=== PATIENT | male | born 1980 | race Caucasian/White ===

== ENCOUNTER → 2017-09-06 07:59 | Outpatient (CLI) | payer OTHER, SELFPAY ==
[2017-09-06 08:19] LABS: Hemoglobin 15.4 g/dL (13.5-17.5); Mean Corpuscular HGB Conc 34.2 % (30-36); Mean Corpuscular Hemoglobin 28.8 PG (26-34); Mean Corpuscular Volume 84.1 fL (80-100); Platelet Count 273 X10^3/uL (150-400); Red Blood Cell Count 5.35 X10^6/uL (4.5-5.9); Red Cell Distribution Width 13.8 % (11.6-14.8)
[2017-09-06 08:29] LABS: Alanine Aminotransferase 50 IU/L (21-72); Albumin 4.3 g/dL (3.5-5.0); Albumin Globulin Ratio 1.7 (1.0-2.8); Alkaline Phosphatase 45 U/L (38-126); Aspartate Aminotransferase 23 IU/L (17-59); BUN Creatinine Ratio 13.6 (6-22); Bilirubin Total 0.5 mg/dL (0.2-1.3); Blood Urea Nitrogen 15 mg/dL (9-20); Calcium 9.3 mg/dL (8.4-10.2); Carbon Dioxide 29 mmol/L (22-32); Chloride 103 mmol/L (98-107); Cholesterol 163 mg/dL (140-199); Estimated Glomerular Filt Rate > 60.0 mL/min (>60); Globulin 2.6 g/dL (1.7-4.1); Glucose 96 mg/dL (70-100); HDL Cholesterol 40 mg/dL (40-60); HEMOLYSIS < 15 (0-50); LDL Cholesterol Calculated 100 mg/dL (<100); Potassium 4.3 mmol/L (3.4-5.1); Sodium 141 mmol/L (137-145); Total Protein 6.9 g/dL (6.3-8.2); Triglycerides 117 mg/dL (35-150)
== END ==
PROVIDERS: Visit Provider Registered Nurse
DX: R94.4 Abnormal results of kidney function studies (principal); E78.1 Pure hyperglyceridemia
CPT/HCPCS: 36415; 80053; 80061; 85025; 85027

== ENCOUNTER 2019-03-18 16:00 | Outpatient (RCR) | payer OTHER, SELFPAY ==
--- NOTE | 2019-02-16 18:19 | PT.OIE ---
Current Diagnoses Strain of muscle, fascia and tendon at neck level, initial encounter (02/16/19) Strain of muscle and tendon of back wall of thorax, initial encounter (02/16/19) Visit Care Team Role Provider Type CHARLENE Mccoy Primary Care Provider Non-Staff Specialty: Naturopathy Address: [address], [address] Email: Landen Anderson [place] Attending Provider Non-Staff Specialty: Chiropractic Address: [address] [place] [address], [id number] Email: Physical Therapy Initial Evaluation PT-OP-A Visit Information Start: 02/16/19 17:34 Freq: Status: Active Protocol: Document 02/16/19 17:35 HH (Rec: 02/16/19 19:20 [id number]) Out-Patient Physical Therapy Visit Information Visit Information Visit Type Initial Evaluation Visit Note SPT Bandar led IE. Visit Start Time 17:35 Visit Stop Time 18:19 Total Visit Minutes 44 Visit Number 1 Number of ORDNANCE KEEPER Visits 0 Evaluation Information Evaluation Date 02/17/19 PT-OP-B Current Condition Start: 02/16/19 17:34 Freq: Status: Active Protocol: Document 02/16/19 17:35 HH (Rec: 02/16/19 19:20 [id number]) Current Condition History of Current Condition Onset Date >10years ago Current Complaints Chronic neck pain and upper back pain, constant headache History of Current Condition Pt presents to clinic with primary c/o chronic neck pain and upper back pain, along with headache. He notes that his neck and upper back pain is not constant but tends to get aggravated after sleeping on it wrong, which then leads to his headache. Pt reports his pain started 10 years ago after he got as he stopped working out. He also notes his neck pain has been getting worse and feels like it is changing so it feels less like my neck is out of alignment and more like pressure between the joints in my neck. Pt states that he also has some tingling up his spine towards his neck when his pain is aggravated. Pt tends to feel better if he stretches his neck or places a towel placed underneath his neck in supine to relax. He has had chiropractic tx consistently over last 10 years but progress is not signficant so far. Looking to his R side, prolonged sitting and working in front of the computer tend to increase his neck pain. Pt also stated he can only sleep up to 4 hours a night over the past 10 years and constantly feels fatigued. 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 Prior Treatments and Tests 10 year hx of chiropractics Treatment Goals Patient/Caregiver Goals 1. Reduce frequency of headaches 2. Work through day without pain 3. Sleep more at night without pain PT-OP-C Subjective Start: 02/16/19 17:34 Freq: Status: Active Protocol: Document 02/16/19 17:35 HH (Rec: 02/16/19 19:20 [id number]) OP-PT Subjective Patient Comments Patient Comments My neck is flared up right now and I have had pain with a headache for the past 2 days. My headache feels like the top of my head has a lot of pressure. Patient Questionnaires Neck Disability Index NDI Score 24/50 Neck Disability Index Impairment 40 to 59% Impaired (Score 20- 29) Quick Dash- Upper Extremity Quick Dash UE Score 54% Quick Dash UE Impairment 40 to 59% Impaired (Score 40- 59) OP-PT Pain Assessment Location Head Intensity 8 Scale Used Numeric (1 - 10) Description Pressure,Sharp Frequency Frequent Variations/Patterns Headache comes on after neck pain starts Pain Alleviating Factors Lying Supine,Position, Distraction Neck/upper back Pain Location Details Central neck/upper back Intensity 7 Scale Used Numeric (1 - 10) Description Aching,Sharp Frequency Frequent Other Pain Aggravating Factors sleeping wrong Pain Alleviating Factors Lying Supine,Position, Distraction PT-OP-E Functional Tests Start: 02/16/19 17:34 Freq: Status: Active Protocol: Document 02/16/19 17:35 HH (Rec: 02/16/19 19:20 [id number]) Functional Tests Boomey's Scratch Test Action 2- Left 145 flexion, sidebend compensation Action 2- Right 155 flexion Action 3- Left T4 Action 3- Right T10 (reports ant muscles limiting) PT-OP-F Manual Assessment Start: 02/16/19 17:34 Freq: Status: Active Protocol: Document 02/16/19 17:35 (Rec: 02/16/19 19:20 [id number]) Manual Assessments Soft Tissue Assessment Soft Tissue Mobility Assessment Suboccipital, cervical paraspinal hypertonicity bilaterally Joint Mobility Assessment Joint Mobility Assessment Noticeable OA hypomobility bilaterally (firm end feel, 25 % motion) AA WNL PT-OP-J Posture/Palpation/Skin Start: 02/16/19 17:34 Freq: Status: Active Protocol: Document 02/16/19 17:35 HH (Rec: 02/16/19 19:20 [id number]) Posture Evaluation Position Sitting Evaluation View Lateral Head/C-Spine Posture Forward Head T-Spine Posture Increased Kyphosis Shoulder Posture (L) Rounded,(R) Rounded,(R) Elevated PT-OP-K Range of Motion Start: 02/16/19 17:34 Freq: Status: Active Protocol: Document 02/16/19 17:35 (Rec: 02/16/19 19:20 [id number]) Cervical Spine Range of Motion Cervical Spine Active Degrees Testing Position Sitting Flexion 40 Extension 45 Rotation Left 60 Rotation Right 60 Comments resting CV angle =47 verbal ==> 55 tactile ==> 60 neck pain at during active rotation/ PROM at end range bilaterally. PT-OP-L Special Tests Start: 02/16/19 17:34 Freq: Status: Active Protocol: Document 02/16/19 17:35 HH (Rec: 02/16/19 19:20 [id number]) Special Tests Cervical Spine Special Tests Traction Test Results +ve Comments relief with distraction Passive Neck Flexion Test Results +ve Comments pain reproduction Spurling's Test Test Results +ve Comments pain B with compression cervical compression Test Results +ve cervical closed pack Test Results +ve Comments pain at end range ext + rotation Other Special Tests Special Tests Lumbar lock 45 B joint mobility deficit Sensation to light touch intact except for L pinky d/t previous injury which severed nerve in hand PT-OP-M Strength Start: 02/16/19 17:34 Freq: Status: Active Protocol: Document 02/16/19 17:35 HH (Rec: 02/16/19 19:20 [id number]) Shoulder Strength Shoulder Manual Muscle Testing Right Abduction (C5) 5 Normal Left Abduction (C5) 5 Normal Elbow/Forearm Strength Elbow and Forearm Manual Muscle Testing Right Flexion (C6) 5 Normal Extension (C7) 4 Good Left Flexion (C6) 5 Normal Extension (C7) 4 Good Wrist Strength Wrist Manual Muscle Testing Right Flexion (C7) 4 Good Extension (C6) 5 Normal Left Flexion (C7) 5 Normal PT-OP-Q Treatments Start: 02/16/19 17:34 Freq: Status: Active Protocol: Document 02/16/19 17:35 (Rec: 02/16/19 19:20 [id number]) Therapeutic Exercises Sitting Exercises chin tuck Sitting Exercise Name nose away from index finger Reps/Minutes 10 secs hold x5 Comments as HEP Manual Therapy Treatment Manual Traction cervical distraction Details with passive rotation Body Position Supine Reps/Duration 10 secs holdx 5 Comments with deep breathing ex Self-Care/Home Management Treatment Education Other Education Disc benefits of inc'd sleep for healing process and recovery. Educated pt on taking movement breaks throughout work day to improve neck pain. PT-OP-T Assessment and Plan Start: 02/16/19 17:34 Freq: Status: Active Protocol: Document 02/16/19 17:35 (Rec: 02/16/19 19:20 [id number]) Physical Therapy Assessment Rehab Potential Rehabilitation Potential Good Evaluation Complexity Number of Personal Factors/Comorbidities 1-2 Number of Body Systems Impaired 1-2 Clinical Presentation at Evaluation Stable Impairments Impairments Functional Activities, Functional Mobility,Pain, Posture,ROM,Strength Goals Self care Impairment Pt does not have HEP for self care Short Term Goal (STG) Pt will demonstrate safety and independence with short-term HEP STG Duration 4 weeks [facility] Goal (LTG) Pt will demonstrate safety and independence with maintenance HEP for long-term self management LTG Duration 8 weeks NDI Impairment Pt scored 24/50 (48% limited) on NDI Short Term Goal (STG) Pt will score <17/50 on NDI to reflect improved participation in functional activities STG Duration 4 weeks Restaurant Server Goal (LTG) Pt will score <10/50 on NDI to reflect improved participation in functional activities LTG Duration 8 weeks Neck pain Impairment Pt reports 7/10 neck pain, 8/ 10 headache Short Term Goal (STG) Pt will report no more than 5/ 10 pain in neck or head with daily activities STG Duration 4 weeks [facility] Goal (LTG) Pt will report no more than 3/ 10 pain in neck or head with daily activities LTG Duration 8 weeks Sleep Impairment Pt has limited sleep and reports neck pain/headache wakes him up Short Term Goal (STG) Pt will sleep >4 hours without interruption d/t neck pain to improve fatigue and headaches STG Duration 4 weeks Restaurant Server Goal (LTG) Pt will sleep >5 hours without interruption d/t neck pain to improve fatigue and headaches LTG Duration 8 weeks Assessment Summary Assessment Pt is mod complexity presenting with primary complaints of neck pain and headaches frequently over the last 10 years. Pt presents with flat affect and notes that he gets minimal sleep at night. Pt reports sx reproduction with cervical active and passive ROM, closed pack position, and compression. Pt has mild C7 conduction deficits B. Pt also presents with marked OA hypomobility B and suboccipital/cervical paraspinal hypertonicity. Pt notes immediate and lasting relief with cervical distraction. Pt will benefit from skilled therapy to address cervical hypomobility, aberrant movement patterns and posture, and improve general health. Physical Therapy Plan Frequency and Duration Frequency of Treatment 2x/Week Duration of Treatment 8 weeks Plan of Care Start Date 02/16/19 Plan of Care End Date 04/13/19 Therapeutic Interventions Therapeutic Interventions Balance Training,Home Exercise Program,Joint Mobilizations, Manual Therapy,Neuromuscular Re-education,Patient/Caregiver Education,Self-Care/Home Management,Sensory Integration ,Soft Tissue Mobilization, Taping,Therapeutic Activities, Therapeutic Exercises, Vestibular Rehabilitation Modalities Cold Pack/Ice Massage,Electric Stimulation,Hot Packs Next Visit Focus/Plan Next Note Type Treatment Note Next Visit Plan schedule more visits with pt discuss strategy to improve sleep health, nutrition, meditation cervical distraction AROM Cardio/general strengthening with elliptical, UBE, shuttle
--- NOTE | 2019-02-17 13:32 | PT.OIE ---
Current Diagnoses Strain of muscle, fascia and tendon at neck level, initial encounter (02/16/19) Strain of muscle and tendon of back wall of thorax, initial encounter (02/16/19) Visit Care Team Role Provider Type CHARLENE Mccoy Primary Care Provider Non-Staff Specialty: Naturopathy Address: [address], [address] Email: Landen Anderson [place] Attending Provider Non-Staff Specialty: Chiropractic Address: [address] [place] [address], [id number] Email: Physical Therapy Initial Evaluation PT-OP-A Visit Information Start: 02/16/19 17:34 Freq: Status: Active Protocol: Document 02/16/19 17:35 HH (Rec: 02/16/19 19:20 [id number]) Out-Patient Physical Therapy Visit Information Visit Information Visit Type Initial Evaluation Visit Note SPT Bandar led IE. Visit Start Time 17:35 Visit Stop Time 18:19 Total Visit Minutes 44 Visit Number 1 Number of CHILD AND FAMILY SERVICES SPECIALIST Visits 0 Evaluation Information Evaluation Date 02/17/19 PT-OP-B Current Condition Start: 02/16/19 17:34 Freq: Status: Active Protocol: Document 02/16/19 17:35 HH (Rec: 02/16/19 19:20 [id number]) Current Condition History of Current Condition Onset Date >10years ago Current Complaints Chronic neck pain and upper back pain, constant headache History of Current Condition Pt presents to clinic with primary c/o chronic neck pain and upper back pain, along with headache. He notes that his neck and upper back pain is not constant but tends to get aggravated after sleeping on it wrong, which then leads to his headache. Pt reports his pain started 10 years ago after he got as he stopped working out. He also notes his neck pain has been getting worse and feels like it is changing so it feels less like my neck is out of alignment and more like pressure between the joints in my neck. Pt states that he also has some tingling up his spine towards his neck when his pain is aggravated. Pt tends to feel better if he stretches his neck or places a towel placed underneath his neck in supine to relax. He has had chiropractic tx consistently over last 10 years but progress is not signficant so far. Looking to his R side, prolonged sitting and working in front of the computer tend to increase his neck pain. Pt also stated he can only sleep up to 4 hours a night over the past 10 years and constantly feels fatigued. 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 Prior Treatments and Tests 10 year hx of chiropractics Treatment Goals Patient/Caregiver Goals 1. Reduce frequency of headaches 2. Work through day without pain 3. Sleep more at night without pain PT-OP-C Subjective Start: 02/16/19 17:34 Freq: Status: Active Protocol: Document 02/16/19 17:35 HH (Rec: 02/16/19 19:20 [id number]) OP-PT Subjective Patient Comments Patient Comments My neck is flared up right now and I have had pain with a headache for the past 2 days. My headache feels like the top of my head has a lot of pressure. Patient Questionnaires Neck Disability Index NDI Score 24/50 Neck Disability Index Impairment 40 to 59% Impaired (Score 20- 29) Quick Dash- Upper Extremity Quick Dash UE Score 54% Quick Dash UE Impairment 40 to 59% Impaired (Score 40- 59) OP-PT Pain Assessment Location Head Intensity 8 Scale Used Numeric (1 - 10) Description Pressure,Sharp Frequency Frequent Variations/Patterns Headache comes on after neck pain starts Pain Alleviating Factors Lying Supine,Position, Distraction Neck/upper back Pain Location Details Central neck/upper back Intensity 7 Scale Used Numeric (1 - 10) Description Aching,Sharp Frequency Frequent Other Pain Aggravating Factors sleeping wrong Pain Alleviating Factors Lying Supine,Position, Distraction PT-OP-E Functional Tests Start: 02/16/19 17:34 Freq: Status: Active Protocol: Document 02/16/19 17:35 HH (Rec: 02/16/19 19:20 [id number]) Functional Tests Boomey's Scratch Test Action 2- Left 145 flexion, sidebend compensation Action 2- Right 155 flexion Action 3- Left T4 Action 3- Right T10 (reports ant muscles limiting) PT-OP-F Manual Assessment Start: 02/16/19 17:34 Freq: Status: Active Protocol: Document 02/16/19 17:35 (Rec: 02/16/19 19:20 [id number]) Manual Assessments Soft Tissue Assessment Soft Tissue Mobility Assessment Suboccipital, cervical paraspinal hypertonicity bilaterally Joint Mobility Assessment Joint Mobility Assessment Noticeable OA hypomobility bilaterally (firm end feel, 25 % motion) AA WNL PT-OP-J Posture/Palpation/Skin Start: 02/16/19 17:34 Freq: Status: Active Protocol: Document 02/16/19 17:35 HH (Rec: 02/16/19 19:20 [id number]) Posture Evaluation Position Sitting Evaluation View Lateral Head/C-Spine Posture Forward Head T-Spine Posture Increased Kyphosis Shoulder Posture (L) Rounded,(R) Rounded,(R) Elevated PT-OP-K Range of Motion Start: 02/16/19 17:34 Freq: Status: Active Protocol: Document 02/16/19 17:35 (Rec: 02/16/19 19:20 [id number]) Cervical Spine Range of Motion Cervical Spine Active Degrees Testing Position Sitting Flexion 40 Extension 45 Rotation Left 60 Rotation Right 60 Comments resting CV angle =47 verbal ==> 55 tactile ==> 60 neck pain at during active rotation/ PROM at end range bilaterally. PT-OP-L Special Tests Start: 02/16/19 17:34 Freq: Status: Active Protocol: Document 02/16/19 17:35 HH (Rec: 02/16/19 19:20 [id number]) Special Tests Cervical Spine Special Tests Traction Test Results +ve Comments relief with distraction Passive Neck Flexion Test Results +ve Comments pain reproduction Spurling's Test Test Results +ve Comments pain B with compression cervical compression Test Results +ve cervical closed pack Test Results +ve Comments pain at end range ext + rotation Other Special Tests Special Tests Lumbar lock 45 B joint mobility deficit Sensation to light touch intact except for L pinky d/t previous injury which severed nerve in hand PT-OP-M Strength Start: 02/16/19 17:34 Freq: Status: Active Protocol: Document 02/16/19 17:35 HH (Rec: 02/16/19 19:20 [id number]) Shoulder Strength Shoulder Manual Muscle Testing Right Abduction (C5) 5 Normal Left Abduction (C5) 5 Normal Elbow/Forearm Strength Elbow and Forearm Manual Muscle Testing Right Flexion (C6) 5 Normal Extension (C7) 4 Good Left Flexion (C6) 5 Normal Extension (C7) 4 Good Wrist Strength Wrist Manual Muscle Testing Right Flexion (C7) 4 Good Extension (C6) 5 Normal Left Flexion (C7) 5 Normal PT-OP-Q Treatments Start: 02/16/19 17:34 Freq: Status: Active Protocol: Document 02/16/19 17:35 (Rec: 02/16/19 19:20 [id number]) Therapeutic Exercises Sitting Exercises chin tuck Sitting Exercise Name nose away from index finger Reps/Minutes 10 secs hold x5 Comments as HEP Manual Therapy Treatment Manual Traction cervical distraction Details with passive rotation Body Position Supine Reps/Duration 10 secs holdx 5 Comments with deep breathing ex Self-Care/Home Management Treatment Education Other Education Disc benefits of inc'd sleep for healing process and recovery. Educated pt on taking movement breaks throughout work day to improve neck pain. PT-OP-T Assessment and Plan Start: 02/16/19 17:34 Freq: Status: Active Protocol: Document 02/16/19 17:35 (Rec: 02/16/19 19:20 [id number]) Physical Therapy Assessment Rehab Potential Rehabilitation Potential Good Evaluation Complexity Number of Personal Factors/Comorbidities 1-2 Number of Body Systems Impaired 1-2 Clinical Presentation at Evaluation Stable Impairments Impairments Functional Activities, Functional Mobility,Pain, Posture,ROM,Strength Goals Self care Impairment Pt does not have HEP for self care Short Term Goal (STG) Pt will demonstrate safety and independence with short-term HEP STG Duration 4 weeks [facility] Goal (LTG) Pt will demonstrate safety and independence with maintenance HEP for long-term self management LTG Duration 8 weeks NDI Impairment Pt scored 24/50 (48% limited) on NDI Short Term Goal (STG) Pt will score <17/50 on NDI to reflect improved participation in functional activities STG Duration 4 weeks Distribution Analyst Goal (LTG) Pt will score <10/50 on NDI to reflect improved participation in functional activities LTG Duration 8 weeks Neck pain Impairment Pt reports 7/10 neck pain, 8/ 10 headache Short Term Goal (STG) Pt will report no more than 5/ 10 pain in neck or head with daily activities STG Duration 4 weeks Senior Care Goal (LTG) Pt will report no more than 3/ 10 pain in neck or head with daily activities LTG Duration 8 weeks Sleep Impairment Pt has limited sleep and reports neck pain/headache wakes him up Short Term Goal (STG) Pt will sleep >4 hours without interruption d/t neck pain to improve fatigue and headaches STG Duration 4 weeks Distribution Analyst Goal (LTG) Pt will sleep >5 hours without interruption d/t neck pain to improve fatigue and headaches LTG Duration 8 weeks Assessment Summary Assessment Pt is mod complexity presenting with primary complaints of neck pain and headaches frequently over the last 10 years. Pt presents with flat affect and notes that he gets minimal sleep at night. Pt reports sx reproduction with cervical active and passive ROM, closed pack position, and compression. Pt has mild C7 conduction deficits B. Pt also presents with marked OA hypomobility B and suboccipital/cervical paraspinal hypertonicity. Pt notes immediate and lasting relief with cervical distraction. Pt will benefit from skilled therapy to address cervical hypomobility, aberrant movement patterns and posture, and improve general health. Physical Therapy Plan Frequency and Duration Frequency of Treatment 2x/Week Duration of Treatment 8 weeks Plan of Care Start Date 02/16/19 Plan of Care End Date 04/13/19 Therapeutic Interventions Therapeutic Interventions Balance Training,Home Exercise Program,Joint Mobilizations, Manual Therapy,Neuromuscular Re-education,Patient/Caregiver Education,Self-Care/Home Management,Sensory Integration ,Soft Tissue Mobilization, Taping,Therapeutic Activities, Therapeutic Exercises, Vestibular Rehabilitation Modalities Cold Pack/Ice Massage,Electric Stimulation,Hot Packs Next Visit Focus/Plan Next Note Type Treatment Note Next Visit Plan schedule more visits with pt discuss strategy to improve sleep health, nutrition, meditation cervical distraction AROM Cardio/general strengthening with elliptical, UBE, shuttle
--- NOTE | 2019-02-23 16:05 | PT.OTN ---
Current Diagnoses Strain of muscle, fascia and tendon at neck level, initial encounter (02/23/19) Strain of muscle and tendon of back wall of thorax, initial encounter (02/23/19) Physical Therapy Treatment Note PT-OP-A Visit Information Start: 02/16/19 17:34 Freq: Status: Active Protocol: Document 02/23/19 15:17 HH (Rec: 02/23/19 15:56 [id number]) Out-Patient Physical Therapy Visit Information Visit Information Visit Type Treatment Note Visit Note SPT Bandar led tx session. Visit Start Time 15:17 Visit Stop Time 16:01 Total Visit Minutes 44 Visit Number 2 Number of THERAPIST RADIATION Visits 0 PT-OP-B Current Condition Start: 02/16/19 17:34 Freq: Status: Active Protocol: Document 02/16/19 17:35 HH (Rec: 02/16/19 19:20 [id number]) Current Condition History of Current Condition Onset Date >10years ago Current Complaints Chronic neck pain and upper back pain, constant headache History of Current Condition Pt presents to clinic with primary c/o chronic neck pain and upper back pain, along with headache. He notes that his neck and upper back pain is not constant but tends to get aggravated after sleeping on it wrong, which then leads to his headache. Pt reports his pain started 10 years ago after he got as he stopped working out. He also notes his neck pain has been getting worse and feels like it is changing so it feels less like my neck is out of alignment and more like pressure between the joints in my neck. Pt states that he also has some tingling up his spine towards his neck when his pain is aggravated. Pt tends to feel better if he stretches his neck or places a towel placed underneath his neck in supine to relax. He has had chiropractic tx consistently over last 10 years but progress is not signficant so far. Looking to his R side, prolonged sitting and working in front of the computer tend to increase his neck pain. Pt also stated he can only sleep up to 4 hours a night over the past 10 years and constantly feels fatigued. 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 Prior Treatments and Tests 10 year hx of chiropractics Treatment Goals Patient/Caregiver Goals 1. Reduce frequency of headaches 2. Work through day without pain 3. Sleep more at night without pain PT-OP-C Subjective Start: 02/16/19 17:34 Freq: Status: Active Protocol: Document 02/23/19 15:17 HH (Rec: 02/23/19 15:56 [id number]) OP-PT Subjective Patient Comments Patient Comments I felt better for next few days after last visit. My sleep did get better too but the last two days my symptoms got back again. I';ve been doing my chin tuck. Patient Reported Progress Improving PT-OP-E Functional Tests Start: 02/16/19 17:34 Freq: Status: Active Protocol: Document 02/16/19 17:35 HH (Rec: 02/16/19 19:20 [id number]) Functional Tests Apley's Scratch Test Action 2- Left 145 flexion, sidebend compensation Action 2- Right 155 flexion Action 3- Left T4 Action 3- Right T10 (reports ant muscles limiting) PT-OP-F Manual Assessment Start: 02/16/19 17:34 Freq: Status: Active Protocol: Document 02/16/19 17:35 HH (Rec: 02/16/19 19:20 [id number]) Manual Assessments Soft Tissue Assessment Soft Tissue Mobility Assessment Suboccipital, cervical paraspinal hypertonicity bilaterally Joint Mobility Assessment Joint Mobility Assessment Noticeable OA hypomobility bilaterally (firm end feel, 25 % motion) AA WNL PT-OP-J Posture/Palpation/Skin Start: 02/16/19 17:34 Freq: Status: Active Protocol: Document 02/16/19 17:35 (Rec: 02/16/19 19:20 [id number]) Posture Evaluation Position Sitting Evaluation View Lateral Head/C-Spine Posture Forward Head T-Spine Posture Increased Kyphosis Shoulder Posture (L) Rounded,(R) Rounded,(R) Elevated PT-OP-K Range of Motion Start: 02/16/19 17:34 Freq: Status: Active Protocol: Document 02/16/19 17:35 HH (Rec: 02/16/19 19:20 [id number]) Cervical Spine Range of Motion Cervical Spine Active Degrees Testing Position Sitting Flexion 40 Extension 45 Rotation Left 60 Rotation Right 60 Comments resting CV angle =47 verbal ==> 55 tactile ==> 60 neck pain at during active rotation/ PROM at end range bilaterally. PT-OP-L Special Tests Start: 02/16/19 17:34 Freq: Status: Active Protocol: Document 02/16/19 17:35 HH (Rec: 02/16/19 19:20 [id number]) Special Tests Cervical Spine Special Tests Traction Test Results +ve Comments relief with distraction Passive Neck Flexion Test Results +ve Comments pain reproduction Spurling's Test Test Results +ve Comments pain B with compression cervical compression Test Results +ve cervical closed pack Test Results +ve Comments pain at end range ext + rotation Other Special Tests Special Tests Lumbar lock 45 B joint mobility deficit Sensation to light touch intact except for L pinky d/t previous injury which severed nerve in hand PT-OP-M Strength Start: 02/16/19 17:34 Freq: Status: Active Protocol: Document 02/16/19 17:35 HH (Rec: 02/16/19 19:20 [id number]) Shoulder Strength Shoulder Manual Muscle Testing Right Abduction (C5) 5 Normal Left Abduction (C5) 5 Normal Elbow/Forearm Strength Elbow and Forearm Manual Muscle Testing Right Flexion (C6) 5 Normal Extension (C7) 4 Good Left Flexion (C6) 5 Normal Extension (C7) 4 Good Wrist Strength Wrist Manual Muscle Testing Right Flexion (C7) 4 Good Extension (C6) 5 Normal Left Flexion (C7) 5 Normal PT-OP-Q Treatments Start: 02/16/19 17:34 Freq: Status: Active Protocol: Document 02/23/19 15:17 HH (Rec: 02/23/19 15:56 [id number]) Cardio Equipment Elliptical Duration (Minutes) 8 Resistance 4 Therapeutic Exercises Supine Exercises tennis ball release Supine Exercise Name on paraspinals Equipment Used tennis ball Reps/Minutes 2 mins T/S extension Side bilateral Equipment Used foam roller Reps/Minutes 12 x 3 Comments cues on isolated T/S extension Sidelying Exercises open book Side bilateral Reps/Minutes 12 x 2 Sitting Exercises seated neck stretch Sitting Exercise Name levator scap stretch Side bilateral Reps/Minutes 10 secs holdx 3 Comments self stretch with hand at side of the head. seated shoulder roll Side bilateral Equipment Used belgian ball Comments scap retraction and protraction seated neck rotation Sitting Exercise Name isolated bilateral trunk rotation without neck rotation Equipment Used belgian ball Reps/Minutes 5 mins Manual Therapy Treatment Soft Tissue Mobilization upper trap Mobilization Type Sustained Pressure,Trigger Point Release Intensity/Depth Moderate Body Position Sitting suboccipital Mobilization Type Sustained Pressure,Trigger Point Release Intensity/Depth Moderate Body Position Supine Manual Traction cervical distraction Details with passive rotation Body Position Supine Reps/Duration 10 secs holdx 5 Comments with deep breathing ex PT-OP-T Assessment and Plan Start: 02/16/19 17:34 Freq: Status: Active Protocol: Document 02/23/19 15:17 (Rec: 02/23/19 15:56 [id number]) Physical Therapy Assessment Goals Self care Impairment Pt does not have HEP for self care Short Term Goal (STG) Pt will demonstrate safety and independence with short-term HEP STG Duration 4 weeks [employer]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 Goal (LTG) Pt will demonstrate safety and independence with maintenance HEP for long-term self management LTG Duration 8 weeks NDI Impairment Pt scored 24/50 (48% limited) on NDI Short Term Goal (STG) Pt will score <17/50 on NDI to reflect improved participation in functional activities STG Duration 4 weeks Fpc Goal (LTG) Pt will score <10/50 on NDI to reflect improved participation in functional activities LTG Duration 8 weeks Neck pain Impairment Pt reports 7/10 neck pain, 8/ 10 headache Short Term Goal (STG) Pt will report no more than 5/ 10 pain in neck or head with daily activities STG Duration 4 weeks Fpc Goal (LTG) Pt will report no more than 3/ 10 pain in neck or head with daily activities LTG Duration 8 weeks Sleep Impairment Pt has limited sleep and reports neck pain/headache wakes him up Short Term Goal (STG) Pt will sleep >4 hours without interruption d/t neck pain to improve fatigue and headaches STG Duration 4 weeks Fpc Goal (LTG) Pt will sleep >5 hours without interruption d/t neck pain to improve fatigue and headaches LTG Duration 8 weeks Assessment Summary Assessment Pt reports improved symptoms since last visit. Added neck stretch, tennis ball release, open book and chin tuck to HEP . Provided handouts of how to improve sleep. Physical Therapy Plan Next Visit Focus/Plan Next Note Type Treatment Note Next Visit Plan Review HEP discuss strategy to improve sleep health, nutrition, meditation cervical distraction AROM Cardio/general strengthening with elliptical, UBE, shuttle
--- NOTE | 2019-02-25 17:09 | PT.OTN ---
Current Diagnoses Strain of muscle, fascia and tendon at neck level, initial encounter (02/25/19) Strain of muscle and tendon of back wall of thorax, initial encounter (02/25/19) Physical Therapy Treatment Note PT-OP-A Visit Information Start: 02/16/19 17:34 Freq: Status: Active Protocol: Document 02/25/19 15:17 HH (Rec: 02/25/19 17:07 HH [id number]) Out-Patient Physical Therapy Visit Information Visit Information Visit Type Treatment Note Visit Start Time 15:17 Visit Stop Time 16:00 Total Visit Minutes 43 Visit Number 3 Number of PET FOOD DEBONER Visits 0 PT-OP-B Current Condition Start: 02/16/19 17:34 Freq: Status: Active Protocol: Document 02/16/19 17:35 HH (Rec: 02/16/19 19:20 HH [id number]) Current Condition History of Current Condition Onset Date >10years ago Current Complaints Chronic neck pain and upper back pain, constant headache History of Current Condition Pt presents to clinic with primary c/o chronic neck pain and upper back pain, along with headache. He notes that his neck and upper back pain is not constant but tends to get aggravated after sleeping on it wrong, which then leads to his headache. Pt reports his pain started 10 years ago after he got as he stopped working out. He also notes his neck pain has been getting worse and feels like it is changing so it feels less like my neck is out of alignment and more like pressure between the joints in my neck. Pt states that he also has some tingling up his spine towards his neck when his pain is aggravated. Pt tends to feel better if he stretches his neck or places a towel placed underneath his neck in supine to relax. He has had chiropractic tx consistently over last 10 years but progress is not signficant so far. Looking to his R side, prolonged sitting and working in front of the computer tend to increase his neck pain. Pt also stated he can only sleep up to 4 hours a night over the past 10 years and constantly feels fatigued. 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 Prior Treatments and Tests 10 year hx of chiropractics Treatment Goals Patient/Caregiver Goals 1. Reduce frequency of headaches 2. Work through day without pain 3. Sleep more at night without pain PT-OP-C Subjective Start: 02/16/19 17:34 Freq: Status: Active Protocol: Document 02/25/19 15:17 (Rec: 02/25/19 17:07 [id number]) OP-PT Subjective Patient Comments Patient Comments I had a pretty good sleep last night from 8pm- 1am but the night before was only 1-3 am. My pain is pretty much same. Patient Reported Progress Improving PT-OP-E Functional Tests Start: 02/16/19 17:34 Freq: Status: Active Protocol: Document 02/16/19 17:35 (Rec: 02/16/19 19:20 [id number]) Functional Tests Apley's Scratch Test Action 2- Left 145 flexion, sidebend compensation Action 2- Right 155 flexion Action 3- Left T4 Action 3- Right T10 (reports ant muscles limiting) PT-OP-F Manual Assessment Start: 02/16/19 17:34 Freq: Status: Active Protocol: Document 02/16/19 17:35 (Rec: 02/16/19 19:20 [id number]) Manual Assessments Soft Tissue Assessment Soft Tissue Mobility Assessment Suboccipital, cervical paraspinal hypertonicity bilaterally Joint Mobility Assessment Joint Mobility Assessment Noticeable OA hypomobility bilaterally (firm end feel, 25 % motion) AA WNL PT-OP-J Posture/Palpation/Skin Start: 02/16/19 17:34 Freq: Status: Active Protocol: Document 02/16/19 17:35 (Rec: 02/16/19 19:20 [id number]) Posture Evaluation Position Sitting Evaluation View Lateral Head/C-Spine Posture Forward Head T-Spine Posture Increased Kyphosis Shoulder Posture (L) Rounded,(R) Rounded,(R) Elevated PT-OP-K Range of Motion Start: 02/16/19 17:34 Freq: Status: Active Protocol: Document 02/16/19 17:35 (Rec: 02/16/19 19:20 [id number]) Cervical Spine Range of Motion Cervical Spine Active Degrees Testing Position Sitting Flexion 40 Extension 45 Rotation Left 60 Rotation Right 60 Comments resting CV angle =47 verbal ==> 55 tactile ==> 60 neck pain at during active rotation/ PROM at end range bilaterally. PT-OP-L Special Tests Start: 02/16/19 17:34 Freq: Status: Active Protocol: Document 02/16/19 17:35 HH (Rec: 02/16/19 19:20 [id number]) Special Tests Cervical Spine Special Tests Traction Test Results +ve Comments relief with distraction Passive Neck Flexion Test Results +ve Comments pain reproduction Spurling's Test Test Results +ve Comments pain B with compression cervical compression Test Results +ve cervical closed pack Test Results +ve Comments pain at end range ext + rotation Other Special Tests Special Tests Lumbar lock 45 B joint mobility deficit Sensation to light touch intact except for L pinky d/t previous injury which severed nerve in hand PT-OP-M Strength Start: 02/16/19 17:34 Freq: Status: Active Protocol: Document 02/16/19 17:35 HH (Rec: 02/16/19 19:20 [id number]) Shoulder Strength Shoulder Manual Muscle Testing Right Abduction (C5) 5 Normal Left Abduction (C5) 5 Normal Elbow/Forearm Strength Elbow and Forearm Manual Muscle Testing Right Flexion (C6) 5 Normal Extension (C7) 4 Good Left Flexion (C6) 5 Normal Extension (C7) 4 Good Wrist Strength Wrist Manual Muscle Testing Right Flexion (C7) 4 Good Extension (C6) 5 Normal Left Flexion (C7) 5 Normal PT-OP-Q Treatments Start: 02/16/19 17:34 Freq: Status: Active Protocol: Document 02/25/19 15:17 HH (Rec: 02/25/19 17:07 [id number]) Cardio Equipment Upper Body Ergometer (UBE) Duration (Minutes) 5 RPM 80 Elliptical Duration (Minutes) 6 Resistance 5 Therapeutic Exercises Prone Exercises child pose Side bilateral Reps/Minutes 15 cat/ camel Side bilateral Reps/Minutes 10 x2 Comments inhalation during camel pose and exhalation during cat pose Sitting Exercises seated trunk FL EXT Sitting Exercise Name hands behind head Side bilateral Reps/Minutes 10 each direction x 2 Manual Therapy Treatment Soft Tissue Mobilization upper trap Mobilization Type Sustained Pressure,Trigger Point Release Intensity/Depth Moderate Body Position Sitting suboccipital Mobilization Type Sustained Pressure,Trigger Point Release Intensity/Depth Moderate Body Position Supine Comments in prone position as well Manual Traction cervical distraction Details with passive rotation Body Position Supine Reps/Duration 10 secs holdx 5 Comments with deep breathing ex PT-OP-R Modalities Start: 02/16/19 17:34 Freq: Status: Active Protocol: Document 02/25/19 15:17 (Rec: 02/25/19 17:09 [id number]) Hot Pack/Cold Pack Treatment moist heat Location C/S and lumbar Patient Position Prone Treatment Duration (minutes) 8 Patient Tolerance Good PT-OP-T Assessment and Plan Start: 02/16/19 17:34 Freq: Status: Active Protocol: Document 02/25/19 15:17 (Rec: 02/25/19 17:07 [id number]) Physical Therapy Assessment Goals Self care Impairment Pt does not have HEP for self care Short Term Goal (STG) Pt will demonstrate safety and independence with short-term HEP STG Duration 4 weeks Jail Goal (LTG) Pt will demonstrate safety and independence with maintenance HEP for long-term self management LTG Duration 8 weeks NDI Impairment Pt scored 24/50 (48% limited) on NDI Short Term Goal (STG) Pt will score <17/50 on NDI to reflect improved participation in functional activities STG Duration 4 weeks Brand Director Goal (LTG) Pt will score <10/50 on NDI to reflect improved participation in functional activities LTG Duration 8 weeks Neck pain Impairment Pt reports 7/10 neck pain, 8/ 10 headache Short Term Goal (STG) Pt will report no more than 5/ 10 pain in neck or head with daily activities STG Duration 4 weeks Jail Goal (LTG) Pt will report no more than 3/ 10 pain in neck or head with daily activities LTG Duration 8 weeks Sleep Impairment Pt has limited sleep and reports neck pain/headache wakes him up Short Term Goal (STG) Pt will sleep >4 hours without interruption d/t neck pain to improve fatigue and headaches STG Duration 4 weeks Brand Director Goal (LTG) Pt will sleep >5 hours without interruption d/t neck pain to improve fatigue and headaches LTG Duration 8 weeks Assessment Summary Assessment Introduced gentle trunk and C/ S spine RO, along with cardio ex to pt today and he marlyn well w/o increased discomfort. Educated pt to practice deep breathing ex before sleep. 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 Physical Therapy Plan Next Visit Focus/Plan Next Note Type Treatment Note Next Visit Plan Review HEP discuss strategy to improve sleep health, nutrition, meditation cervical distraction AROM Cardio/general strengthening with elliptical, UBE, shuttle
--- NOTE | 2019-03-03 17:16 | PT.OTN ---
Current Diagnoses Strain of muscle, fascia and tendon at neck level, initial encounter (03/03/19) Strain of muscle and tendon of back wall of thorax, initial encounter (03/03/19) Physical Therapy Treatment Note PT-OP-A Visit Information Start: 02/16/19 17:34 Freq: Status: Active Protocol: Document 03/03/19 16:05 HH (Rec: 03/03/19 17:16 HH [id number]) Out-Patient Physical Therapy Visit Information Visit Information Visit Type Treatment Note Visit Start Time 16:05 Visit Stop Time 16:45 Total Visit Minutes 40 Visit Number 4 Number of EXPORT FREIGHT MANAGER Visits 0 PT-OP-B Current Condition Start: 02/16/19 17:34 Freq: Status: Active Protocol: Document 02/16/19 17:35 HH (Rec: 02/16/19 19:20 HH [id number]) Current Condition History of Current Condition Onset Date >10years ago Current Complaints Chronic neck pain and upper back pain, constant headache History of Current Condition Pt presents to clinic with primary c/o chronic neck pain and upper back pain, along with headache. He notes that his neck and upper back pain is not constant but tends to get aggravated after sleeping on it wrong, which then leads to his headache. Pt reports his pain started 10 years ago after he got as he stopped working out. He also notes his neck pain has been getting worse and feels like it is changing so it feels less like my neck is out of alignment and more like pressure between the joints in my neck. Pt states that he also has some tingling up his spine towards his neck when his pain is aggravated. Pt tends to feel better if he stretches his neck or places a towel placed underneath his neck in supine to relax. He has had chiropractic tx consistently over last 10 years but progress is not signficant so far. Looking to his R side, prolonged sitting and working in front of the computer tend to increase his neck pain. Pt also stated he can only sleep up to 4 hours a night over the past 10 years and constantly feels fatigued. 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 Prior Treatments and Tests 10 year hx of chiropractics Treatment Goals Patient/Caregiver Goals 1. Reduce frequency of headaches 2. Work through day without pain 3. Sleep more at night without pain PT-OP-C Subjective Start: 02/16/19 17:34 Freq: Status: Active Protocol: Document 03/03/19 16:05 HH (Rec: 03/03/19 17:16 [id number]) OP-PT Subjective Patient Comments Patient Comments I had an ocular migraine on friday but besides that i slept pretty good for a few days. I was able to fall back to sleep even though i woke up early in the morning. My neck doesnt feel as tight. Patient Reported Progress Improving PT-OP-E Functional Tests Start: 02/16/19 17:34 Freq: Status: Active Protocol: Document 02/16/19 17:35 HH (Rec: 02/16/19 19:20 [id number]) Functional Tests Apley's Scratch Test Action 2- Left 145 flexion, sidebend compensation Action 2- Right 155 flexion Action 3- Left T4 Action 3- Right T10 (reports ant muscles limiting) PT-OP-F Manual Assessment Start: 02/16/19 17:34 Freq: Status: Active Protocol: Document 02/16/19 17:35 HH (Rec: 02/16/19 19:20 [id number]) Manual Assessments Soft Tissue Assessment Soft Tissue Mobility Assessment Suboccipital, cervical paraspinal hypertonicity bilaterally Joint Mobility Assessment Joint Mobility Assessment Noticeable OA hypomobility bilaterally (firm end feel, 25 % motion) AA WNL PT-OP-J Posture/Palpation/Skin Start: 02/16/19 17:34 Freq: Status: Active Protocol: Document 02/16/19 17:35 HH (Rec: 02/16/19 19:20 [id number]) Posture Evaluation Position Sitting Evaluation View Lateral Head/C-Spine Posture Forward Head T-Spine Posture Increased Kyphosis Shoulder Posture (L) Rounded,(R) Rounded,(R) Elevated PT-OP-K Range of Motion Start: 02/16/19 17:34 Freq: Status: Active Protocol: Document 02/16/19 17:35 HH (Rec: 02/16/19 19:20 [id number]) Cervical Spine Range of Motion Cervical Spine Active Degrees Testing Position Sitting Flexion 40 Extension 45 Rotation Left 60 Rotation Right 60 Comments resting CV angle =47 verbal ==> 55 tactile ==> 60 neck pain at during active rotation/ PROM at end range bilaterally. PT-OP-L Special Tests Start: 02/16/19 17:34 Freq: Status: Active Protocol: Document 02/16/19 17:35 (Rec: 02/16/19 19:20 [id number]) Special Tests Cervical Spine Special Tests Traction Test Results +ve Comments relief with distraction Passive Neck Flexion Test Results +ve Comments pain reproduction Spurling's Test Test Results +ve Comments pain B with compression cervical compression Test Results +ve cervical closed pack Test Results +ve Comments pain at end range ext + rotation Other Special Tests Special Tests Lumbar lock 45 B joint mobility deficit Sensation to light touch intact except for L pinky d/t previous injury which severed nerve in hand PT-OP-M Strength Start: 02/16/19 17:34 Freq: Status: Active Protocol: Document 02/16/19 17:35 (Rec: 02/16/19 19:20 [id number]) Shoulder Strength Shoulder Manual Muscle Testing Right Abduction (C5) 5 Normal Left Abduction (C5) 5 Normal Elbow/Forearm Strength Elbow and Forearm Manual Muscle Testing Right Flexion (C6) 5 Normal Extension (C7) 4 Good Left Flexion (C6) 5 Normal Extension (C7) 4 Good Wrist Strength Wrist Manual Muscle Testing Right Flexion (C7) 4 Good Extension (C6) 5 Normal Left Flexion (C7) 5 Normal PT-OP-Q Treatments Start: 02/16/19 17:34 Freq: Status: Active Protocol: Document 03/03/19 16:05 (Rec: 03/03/19 17:16 [id number]) Cardio Equipment Upper Body Ergometer (UBE) Duration (Minutes) 5 RPM 80 Elliptical Duration (Minutes) 6 Resistance 5 Gym Equipment Shuttle Recovery B squat Resistance #100-125 Shuttle Recovery Platform Stable Reps/Time 20 reps x 3 Therapeutic Exercises Sitting Exercises seated scap row Side bilateral Resistance 30lbs Reps/Minutes 10 x2 Comments for HEP as well with level 2 band Manual Therapy Treatment Soft Tissue Mobilization upper trap Mobilization Type Sustained Pressure,Trigger Point Release Intensity/Depth Moderate Body Position Sitting suboccipital Mobilization Type Sustained Pressure,Trigger Point Release Intensity/Depth Moderate Body Position Supine Comments in prone position as well Manual Traction cervical distraction Details with passive rotation Body Position Supine Reps/Duration 10 secs holdx 5 Comments with deep breathing ex PT-OP-R Modalities Start: 02/16/19 17:34 Freq: Status: Active Protocol: Document 02/25/19 15:17 (Rec: 02/25/19 17:09 [id number]) Hot Pack/Cold Pack Treatment moist heat Location C/S and lumbar Patient Position Prone Treatment Duration (minutes) 8 Patient Tolerance Good PT-OP-T Assessment and Plan Start: 02/16/19 17:34 Freq: Status: Active Protocol: Document 03/03/19 16:05 (Rec: 03/03/19 17:16 [id number]) Physical Therapy Assessment Goals Self care Impairment Pt does not have HEP for self care Short Term Goal (STG) Pt will demonstrate safety and independence with short-term HEP STG Duration 4 weeks Insulation Cupola Charger Goal (LTG) Pt will demonstrate safety and independence with maintenance HEP for long-term self management LTG Duration 8 weeks NDI Impairment Pt scored 24/50 (48% limited) on NDI Short Term Goal (STG) Pt will score <17/50 on NDI to reflect improved participation in functional activities STG Duration 4 weeks Insulation Cupola Charger Goal (LTG) Pt will score <10/50 on NDI to reflect improved participation in functional activities LTG Duration 8 weeks Neck pain Impairment Pt reports 7/10 neck pain, 8/ 10 headache Short Term Goal (STG) Pt will report no more than 5/ 10 pain in neck or head with daily activities STG Duration 4 weeks Senior Care Goal (LTG) Pt will report no more than 3/ 10 pain in neck or head with daily activities LTG Duration 8 weeks Sleep Impairment Pt has limited sleep and reports neck pain/headache wakes him up Short Term Goal (STG) Pt will sleep >4 hours without interruption d/t neck pain to improve fatigue and headaches STG Duration 4 weeks Senior Care Goal (LTG) Pt will sleep >5 hours without interruption d/t neck pain to improve fatigue and headaches LTG Duration 8 weeks Assessment Summary Assessment BP stays at 120s/70s during session. Cont overall endurance and strength training. Added shuttle recovery and seated scap row today. Pt marlyn tx well without increased discomfort. Physical Therapy Plan Next Visit Focus/Plan Next Note Type Treatment Note Next Visit Plan Review HEP cont overall endrance and strength training. discuss strategy to improve sleep health, nutrition, meditation cervical distraction AROM Cardio/general strengthening with elliptical, UBE, shuttle
--- NOTE | 2019-03-09 17:35 | PT.OTN ---
Current Diagnoses Strain of muscle, fascia and tendon at neck level, initial encounter (03/09/19) Strain of muscle and tendon of back wall of thorax, initial encounter (03/09/19) Physical Therapy Treatment Note PT-OP-A Visit Information Start: 02/16/19 17:34 Freq: Status: Active Protocol: Document 03/09/19 16:50 HH (Rec: 03/09/19 17:35 HH [id number]) Out-Patient Physical Therapy Visit Information Visit Information Visit Type Treatment Note Visit Note SPT Bandar led tx. Visit Start Time 16:50 Visit Stop Time 17:31 Total Visit Minutes 41 Visit Number 5 Number of CARBON PLANT GRINDER Visits 0 PT-OP-B Current Condition Start: 02/16/19 17:34 Freq: Status: Active Protocol: Document 02/16/19 17:35 HH (Rec: 02/16/19 19:20 HH [id number]) Current Condition History of Current Condition Onset Date >10years ago Current Complaints Chronic neck pain and upper back pain, constant headache History of Current Condition Pt presents to clinic with primary c/o chronic neck pain and upper back pain, along with headache. He notes that his neck and upper back pain is not constant but tends to get aggravated after sleeping on it wrong, which then leads to his headache. Pt reports his pain started 10 years ago after he got as he stopped working out. He also notes his neck pain has been getting worse and feels like it is changing so it feels less like my neck is out of alignment and more like pressure between the joints in my neck. Pt states that he also has some tingling up his spine towards his neck when his pain is aggravated. Pt tends to feel better if he stretches his neck or places a towel placed underneath his neck in supine to relax. He has had chiropractic tx consistently over last 10 years but progress is not signficant so far. Looking to his R side, prolonged sitting and working in front of the computer tend to increase his neck pain. Pt also stated he can only sleep up to 4 hours a night over the past 10 years and constantly feels fatigued. 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 Prior Treatments and Tests 10 year hx of chiropractics Treatment Goals Patient/Caregiver Goals 1. Reduce frequency of headaches 2. Work through day without pain 3. Sleep more at night without pain PT-OP-C Subjective Start: 02/16/19 17:34 Freq: Status: Active Protocol: Document 03/09/19 16:50 HH (Rec: 03/09/19 17:35 [id number]) OP-PT Subjective Patient Comments Patient Comments I had a few headaches during the weekend but not as bad. Gail been able to sleep until 3 am in the morning and i had dreams which i havent had it for a very long time. Patient Reported Progress Improving PT-OP-E Functional Tests Start: 02/16/19 17:34 Freq: Status: Active Protocol: Document 02/16/19 17:35 HH (Rec: 02/16/19 19:20 [id number]) Functional Tests Apley's Scratch Test Action 2- Left 145 flexion, sidebend compensation Action 2- Right 155 flexion Action 3- Left T4 Action 3- Right T10 (reports ant muscles limiting) PT-OP-F Manual Assessment Start: 02/16/19 17:34 Freq: Status: Active Protocol: Document 02/16/19 17:35 HH (Rec: 02/16/19 19:20 [id number]) Manual Assessments Soft Tissue Assessment Soft Tissue Mobility Assessment Suboccipital, cervical paraspinal hypertonicity bilaterally Joint Mobility Assessment Joint Mobility Assessment Noticeable OA hypomobility bilaterally (firm end feel, 25 % motion) AA WNL PT-OP-J Posture/Palpation/Skin Start: 02/16/19 17:34 Freq: Status: Active Protocol: Document 02/16/19 17:35 HH (Rec: 02/16/19 19:20 [id number]) Posture Evaluation Position Sitting Evaluation View Lateral Head/C-Spine Posture Forward Head T-Spine Posture Increased Kyphosis Shoulder Posture (L) Rounded,(R) Rounded,(R) Elevated PT-OP-K Range of Motion Start: 02/16/19 17:34 Freq: Status: Active Protocol: Document 02/16/19 17:35 HH (Rec: 02/16/19 19:20 [id number]) Cervical Spine Range of Motion Cervical Spine Active Degrees Testing Position Sitting Flexion 40 Extension 45 Rotation Left 60 Rotation Right 60 Comments resting CV angle =47 verbal ==> 55 tactile ==> 60 neck pain at during active rotation/ PROM at end range bilaterally. PT-OP-L Special Tests Start: 02/16/19 17:34 Freq: Status: Active Protocol: Document 02/16/19 17:35 HH (Rec: 02/16/19 19:20 [id number]) Special Tests Cervical Spine Special Tests Traction Test Results +ve Comments relief with distraction Passive Neck Flexion Test Results +ve Comments pain reproduction Spurling's Test Test Results +ve Comments pain B with compression cervical compression Test Results +ve cervical closed pack Test Results +ve Comments pain at end range ext + rotation Other Special Tests Special Tests Lumbar lock 45 B joint mobility deficit Sensation to light touch intact except for L pinky d/t previous injury which severed nerve in hand PT-OP-M Strength Start: 02/16/19 17:34 Freq: Status: Active Protocol: Document 02/16/19 17:35 HH (Rec: 02/16/19 19:20 [id number]) Shoulder Strength Shoulder Manual Muscle Testing Right Abduction (C5) 5 Normal Left Abduction (C5) 5 Normal Elbow/Forearm Strength Elbow and Forearm Manual Muscle Testing Right Flexion (C6) 5 Normal Extension (C7) 4 Good Left Flexion (C6) 5 Normal Extension (C7) 4 Good Wrist Strength Wrist Manual Muscle Testing Right Flexion (C7) 4 Good Extension (C6) 5 Normal Left Flexion (C7) 5 Normal PT-OP-Q Treatments Start: 02/16/19 17:34 Freq: Status: Active Protocol: Document 03/09/19 16:50 HH (Rec: 03/09/19 17:35 [id number]) Cardio Equipment Upper Body Ergometer (UBE) Duration (Minutes) 4 RPM 80 Elliptical Duration (Minutes) 7 Resistance 5 Gym Equipment Shuttle Recovery SL squat Resistance #75 Shuttle Recovery Platform Stable Reps/Time 20 reps x 3 B squat Resistance #100-125 Shuttle Recovery Platform Stable Reps/Time 20 reps x 3 Therapeutic Exercises Prone Exercises push up plus with rot Prone Exercise Name with cervical rotation and chin tuck Side bilateral Reps/Minutes 8 x2 prayer stretch Prone Exercise Name foam arm on foam roller Side bilateral Equipment Used foam roller Reps/Minutes 5 sec hold x 8 Standing Exercises step up Side bilateral Equipment Used 12inch step Reps/Minutes 10x2 prayer stretch Standing Exercise Name arm extended Equipment Used grab bar Reps/Minutes 8 x 3 Comments cues on T/S ext Manual Therapy Treatment Soft Tissue Mobilization upper trap Mobilization Type Sustained Pressure,Trigger Point Release Intensity/Depth Moderate Body Position Sitting suboccipital Mobilization Type Sustained Pressure,Trigger Point Release Intensity/Depth Moderate Body Position Supine Comments in prone position as well Joint Mobilizations T/S Joint T1-T4 Direction PA mob Grade II Body Position Prone Reps/Duration 10 s x 2 Comments pt denies discomfort Manual Traction cervical distraction Details with passive rotation Body Position Supine Reps/Duration 10 secs holdx 5 Comments with deep breathing ex PT-OP-R Modalities Start: 02/16/19 17:34 Freq: Status: Active Protocol: Document 02/25/19 15:17 HH (Rec: 02/25/19 17:09 [id number]) Hot Pack/Cold Pack Treatment moist heat Location C/S and lumbar Patient Position Prone Treatment Duration (minutes) 8 Patient Tolerance Good PT-OP-T Assessment and Plan Start: 02/16/19 17:34 Freq: Status: Active Protocol: Document 03/09/19 16:50 HH (Rec: 03/09/19 17:35 [id number]) Physical Therapy Assessment Goals Self care Impairment Pt does not have HEP for self care Short Term Goal (STG) Pt will demonstrate safety and independence with short-term HEP STG Duration 4 weeks Fpc Goal (LTG) Pt will demonstrate safety and independence with maintenance HEP for long-term self management LTG Duration 8 weeks NDI Impairment Pt scored 24/50 (48% limited) on NDI Short Term Goal (STG) Pt will score <17/50 on NDI to reflect improved participation in functional activities STG Duration 4 weeks Physician Office Rep Goal (LTG) Pt will score <10/50 on NDI to reflect improved participation in functional activities LTG Duration 8 weeks Neck pain Impairment Pt reports 7/10 neck pain, 8/ 10 headache Short Term Goal (STG) Pt will report no more than 5/ 10 pain in neck or head with daily activities STG Duration 4 weeks Physician Office Rep Goal (LTG) Pt will report no more than 3/ 10 pain in neck or head with daily activities LTG Duration 8 weeks Sleep Impairment Pt has limited sleep and reports neck pain/headache wakes him up Short Term Goal (STG) Pt will sleep >4 hours without interruption d/t neck pain to improve fatigue and headaches STG Duration 4 weeks Fpc Goal (LTG) Pt will sleep >5 hours without interruption d/t neck pain to improve fatigue and headaches LTG Duration 8 weeks Assessment Summary Assessment Pt has improved sleep, headache, and neck pain since last week. Pt marlyn tx very well without discomfort and added child pose, scap row, scap push up with c/s rotation. Physical Therapy Plan Next Visit Focus/Plan Next Note Type Treatment Note Next Visit Plan Review HEP cont overall endrance and strength training. overall T/S mob and strengthening. discuss strategy to improve sleep health, nutrition, meditation cervical distraction AROM Cardio/general strengthening with elliptical, UBE, shuttle
--- NOTE | 2019-03-11 17:50 | PT.OTN ---
Current Diagnoses Strain of muscle, fascia and tendon at neck level, initial encounter (03/11/19) Strain of muscle and tendon of back wall of thorax, initial encounter (03/11/19) Physical Therapy Treatment Note PT-OP-A Visit Information Start: 02/16/19 17:34 Freq: Status: Active Protocol: Document 03/11/19 16:48 HH (Rec: 03/11/19 17:50 HH [id number]) Out-Patient Physical Therapy Visit Information Visit Information Visit Type Treatment Note Visit Start Time 16:48 Visit Stop Time 17:30 Total Visit Minutes 42 Visit Number 6 Number of AWS CONSULTANT Visits 0 PT-OP-B Current Condition Start: 02/16/19 17:34 Freq: Status: Active Protocol: Document 02/16/19 17:35 HH (Rec: 02/16/19 19:20 HH [id number]) Current Condition History of Current Condition Onset Date >10years ago Current Complaints Chronic neck pain and upper back pain, constant headache History of Current Condition Pt presents to clinic with primary c/o chronic neck pain and upper back pain, along with headache. He notes that his neck and upper back pain is not constant but tends to get aggravated after sleeping on it wrong, which then leads to his headache. Pt reports his pain started 10 years ago after he got as he stopped working out. He also notes his neck pain has been getting worse and feels like it is changing so it feels less like my neck is out of alignment and more like pressure between the joints in my neck. Pt states that he also has some tingling up his spine towards his neck when his pain is aggravated. Pt tends to feel better if he stretches his neck or places a towel placed underneath his neck in supine to relax. He has had chiropractic tx consistently over last 10 years but progress is not signficant so far. Looking to his R side, prolonged sitting and working in front of the computer tend to increase his neck pain. Pt also stated he can only sleep up to 4 hours a night over the past 10 years and constantly feels fatigued. 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 Prior Treatments and Tests 10 year hx of chiropractics Treatment Goals Patient/Caregiver Goals 1. Reduce frequency of headaches 2. Work through day without pain 3. Sleep more at night without pain PT-OP-C Subjective Start: 02/16/19 17:34 Freq: Status: Active Protocol: Document 03/11/19 16:48 HH (Rec: 03/11/19 17:50 [id number]) OP-PT Subjective Patient Comments Patient Comments I slept pretty well last night but the night before was only 2hours. I didnt have much headache for the past two days. Patient Reported Progress Improving PT-OP-E Functional Tests Start: 02/16/19 17:34 Freq: Status: Active Protocol: Document 02/16/19 17:35 HH (Rec: 02/16/19 19:20 [id number]) Functional Tests Apley's Scratch Test Action 2- Left 145 flexion, sidebend compensation Action 2- Right 155 flexion Action 3- Left T4 Action 3- Right T10 (reports ant muscles limiting) PT-OP-F Manual Assessment Start: 02/16/19 17:34 Freq: Status: Active Protocol: Document 02/16/19 17:35 HH (Rec: 02/16/19 19:20 [id number]) Manual Assessments Soft Tissue Assessment Soft Tissue Mobility Assessment Suboccipital, cervical paraspinal hypertonicity bilaterally Joint Mobility Assessment Joint Mobility Assessment Noticeable OA hypomobility bilaterally (firm end feel, 25 % motion) AA WNL PT-OP-J Posture/Palpation/Skin Start: 02/16/19 17:34 Freq: Status: Active Protocol: Document 02/16/19 17:35 HH (Rec: 02/16/19 19:20 [id number]) Posture Evaluation Position Sitting Evaluation View Lateral Head/C-Spine Posture Forward Head T-Spine Posture Increased Kyphosis Shoulder Posture (L) Rounded,(R) Rounded,(R) Elevated PT-OP-K Range of Motion Start: 02/16/19 17:34 Freq: Status: Active Protocol: Document 02/16/19 17:35 HH (Rec: 02/16/19 19:20 [id number]) Cervical Spine Range of Motion Cervical Spine Active Degrees Testing Position Sitting Flexion 40 Extension 45 Rotation Left 60 Rotation Right 60 Comments resting CV angle =47 verbal ==> 55 tactile ==> 60 neck pain at during active rotation/ PROM at end range bilaterally. PT-OP-L Special Tests Start: 02/16/19 17:34 Freq: Status: Active Protocol: Document 02/16/19 17:35 HH (Rec: 02/16/19 19:20 [id number]) Special Tests Cervical Spine Special Tests Traction Test Results +ve Comments relief with distraction Passive Neck Flexion Test Results +ve Comments pain reproduction Spurling's Test Test Results +ve Comments pain B with compression cervical compression Test Results +ve cervical closed pack Test Results +ve Comments pain at end range ext + rotation Other Special Tests Special Tests Lumbar lock 45 B joint mobility deficit Sensation to light touch intact except for L pinky d/t previous injury which severed nerve in hand PT-OP-M Strength Start: 02/16/19 17:34 Freq: Status: Active Protocol: Document 02/16/19 17:35 HH (Rec: 02/16/19 19:20 [id number]) Shoulder Strength Shoulder Manual Muscle Testing Right Abduction (C5) 5 Normal Left Abduction (C5) 5 Normal Elbow/Forearm Strength Elbow and Forearm Manual Muscle Testing Right Flexion (C6) 5 Normal Extension (C7) 4 Good Left Flexion (C6) 5 Normal Extension (C7) 4 Good Wrist Strength Wrist Manual Muscle Testing Right Flexion (C7) 4 Good Extension (C6) 5 Normal Left Flexion (C7) 5 Normal PT-OP-Q Treatments Start: 02/16/19 17:34 Freq: Status: Active Protocol: Document 03/11/19 16:48 HH (Rec: 03/11/19 17:50 HH [id number]) Cardio Equipment Elliptical Duration (Minutes) 8 Resistance 7 Gym Equipment Cable Column (Body Solid) scap row Resistance #40 Reps/Time 12 x2 Shuttle Recovery B squat Resistance #100-125 Shuttle Recovery Platform Stable Reps/Time 20 reps x 3 Therapeutic Exercises Prone Exercises stirpot Equipment Used red tristanian ball Reps/Minutes 10 circles push up plus with rot Prone Exercise Name push up plus on table Side bilateral Reps/Minutes 20 prayer stretch Prone Exercise Name foam arm on foam roller Side bilateral Equipment Used foam roller Reps/Minutes 5 sec hold x 8 child pose Side bilateral Reps/Minutes 8x Comments f/b prone extension Sidelying Exercises open book Sidelying Exercise Name at half kneeling position Side bilateral Reps/Minutes 10 each side Manual Therapy Treatment Soft Tissue Mobilization upper trap Mobilization Type Sustained Pressure,Trigger Point Release Intensity/Depth Moderate Body Position Sitting suboccipital Mobilization Type Sustained Pressure,Trigger Point Release Intensity/Depth Moderate Body Position Supine Comments in prone position as well Joint Mobilizations T/S Joint T1-T4 Direction PA mob Grade II Body Position Prone Reps/Duration 10 s x 2 Comments pt denies discomfort Manual Traction cervical distraction Details with passive rotation Body Position Supine Reps/Duration 10 secs holdx 5 Comments with deep breathing ex PT-OP-R Modalities Start: 02/16/19 17:34 Freq: Status: Active Protocol: Document 02/25/19 15:17 HH (Rec: 02/25/19 17:09 HH [id number]) Hot Pack/Cold Pack Treatment moist heat Location C/S and lumbar Patient Position Prone Treatment Duration (minutes) 8 Patient Tolerance Good PT-OP-T Assessment and Plan Start: 02/16/19 17:34 Freq: Status: Active Protocol: Document 03/11/19 16:48 HH (Rec: 03/11/19 17:50 HH [id number]) Physical Therapy Assessment Goals Self care Impairment Pt does not have HEP for self care Short Term Goal (STG) Pt will demonstrate safety and independence with short-term HEP STG Duration 4 weeks [facility] Goal (LTG) Pt will demonstrate safety and independence with maintenance HEP for long-term self management LTG Duration 8 weeks NDI Impairment Pt scored 24/50 (48% limited) on NDI Short Term Goal (STG) Pt will score <17/50 on NDI to reflect improved participation in functional activities STG Duration 4 weeks [facility] Goal (LTG) Pt will score <10/50 on NDI to reflect improved participation in functional activities LTG Duration 8 weeks Neck pain Impairment Pt reports 7/10 neck pain, 8/ 10 headache Short Term Goal (STG) Pt will report no more than 5/ 10 pain in neck or head with daily activities STG Duration 4 weeks [facility] Goal (LTG) Pt will report no more than 3/ 10 pain in neck or head with daily activities LTG Duration 8 weeks Sleep Impairment Pt has limited sleep and reports neck pain/headache wakes him up Short Term Goal (STG) Pt will sleep >4 hours without interruption d/t neck pain to improve fatigue and headaches STG Duration 4 weeks 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 Pt marlyn tx very well without c/o. Pt reports I want to go to sleep after manual therapy. Physical Therapy Plan Next Visit Focus/Plan Next Note Type Treatment Note Next Visit Plan Review HEP and after tx tolerance. cont overall endrance and strength training. overall T/S mob and strengthening. discuss strategy to improve sleep health, nutrition, meditation cervical distraction AROM Cardio/general strengthening with elliptical, UBE, shuttle
--- NOTE | 2019-03-18 18:32 | PT.OTN ---
Current Diagnoses Strain of muscle, fascia and tendon at neck level, initial encounter (03/18/19) Strain of muscle and tendon of back wall of thorax, initial encounter (03/18/19) Physical Therapy Treatment Note PT-OP-A Visit Information Start: 02/16/19 17:34 Freq: Status: Active Protocol: Document 03/18/19 16:07 HH (Rec: 03/18/19 16:47 HH [id number]) Out-Patient Physical Therapy Visit Information Visit Information Visit Type Treatment Note Visit Start Time 16:02 Visit Stop Time 16:45 Total Visit Minutes 43 Visit Number 7 Number of CHARGE HAND Visits 0 PT-OP-B Current Condition Start: 02/16/19 17:34 Freq: Status: Active Protocol: Document 02/16/19 17:35 HH (Rec: 02/16/19 19:20 HH [id number]) Current Condition History of Current Condition Onset Date >10years ago Current Complaints Chronic neck pain and upper back pain, constant headache History of Current Condition Pt presents to clinic with primary c/o chronic neck pain and upper back pain, along with headache. He notes that his neck and upper back pain is not constant but tends to get aggravated after sleeping on it wrong, which then leads to his headache. Pt reports his pain started 10 years ago after he got as he stopped working out. He also notes his neck pain has been getting worse and feels like it is changing so it feels less like my neck is out of alignment and more like pressure between the joints in my neck. Pt states that he also has some tingling up his spine towards his neck when his pain is aggravated. Pt tends to feel better if he stretches his neck or places a towel placed underneath his neck in supine to relax. He has had chiropractic tx consistently over last 10 years but progress is not signficant so far. Looking to his R side, prolonged sitting and working in front of the computer tend to increase his neck pain. Pt also stated he can only sleep up to 4 hours a night over the past 10 years and constantly feels fatigued. 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 Prior Treatments and Tests 10 year hx of chiropractics Treatment Goals Patient/Caregiver Goals 1. Reduce frequency of headaches 2. Work through day without pain 3. Sleep more at night without pain PT-OP-C Subjective Start: 02/16/19 17:34 Freq: Status: Active Protocol: Document 03/18/19 16:07 (Rec: 03/18/19 16:47 [id number]) OP-PT Subjective Patient Comments Patient Comments I slept pretty good with consistent 6-7 hours everyday. But my neck has gotten stiff for the past few days. Patient Reported Progress Improving PT-OP-E Functional Tests Start: 02/16/19 17:34 Freq: Status: Active Protocol: Document 02/16/19 17:35 HH (Rec: 02/16/19 19:20 [id number]) Functional Tests Apley's Scratch Test Action 2- Left 145 flexion, sidebend compensation Action 2- Right 155 flexion Action 3- Left T4 Action 3- Right T10 (reports ant muscles limiting) PT-OP-F Manual Assessment Start: 02/16/19 17:34 Freq: Status: Active Protocol: Document 02/16/19 17:35 (Rec: 02/16/19 19:20 [id number]) Manual Assessments Soft Tissue Assessment Soft Tissue Mobility Assessment Suboccipital, cervical paraspinal hypertonicity bilaterally Joint Mobility Assessment Joint Mobility Assessment Noticeable OA hypomobility bilaterally (firm end feel, 25 % motion) AA WNL PT-OP-J Posture/Palpation/Skin Start: 02/16/19 17:34 Freq: Status: Active Protocol: Document 02/16/19 17:35 (Rec: 02/16/19 19:20 [id number]) Posture Evaluation Position Sitting Evaluation View Lateral Head/C-Spine Posture Forward Head T-Spine Posture Increased Kyphosis Shoulder Posture (L) Rounded,(R) Rounded,(R) Elevated PT-OP-K Range of Motion Start: 02/16/19 17:34 Freq: Status: Active Protocol: Document 02/16/19 17:35 (Rec: 02/16/19 19:20 [id number]) Cervical Spine Range of Motion Cervical Spine Active Degrees Testing Position Sitting Flexion 40 Extension 45 Rotation Left 60 Rotation Right 60 Comments resting CV angle =47 verbal ==> 55 tactile ==> 60 neck pain at during active rotation/ PROM at end range bilaterally. PT-OP-L Special Tests Start: 02/16/19 17:34 Freq: Status: Active Protocol: Document 02/16/19 17:35 HH (Rec: 02/16/19 19:20 [id number]) Special Tests Cervical Spine Special Tests Traction Test Results +ve Comments relief with distraction Passive Neck Flexion Test Results +ve Comments pain reproduction Spurling's Test Test Results +ve Comments pain B with compression cervical compression Test Results +ve cervical closed pack Test Results +ve Comments pain at end range ext + rotation Other Special Tests Special Tests Lumbar lock 45 B joint mobility deficit Sensation to light touch intact except for L pinky d/t previous injury which severed nerve in hand PT-OP-M Strength Start: 02/16/19 17:34 Freq: Status: Active Protocol: Document 02/16/19 17:35 HH (Rec: 02/16/19 19:20 [id number]) Shoulder Strength Shoulder Manual Muscle Testing Right Abduction (C5) 5 Normal Left Abduction (C5) 5 Normal Elbow/Forearm Strength Elbow and Forearm Manual Muscle Testing Right Flexion (C6) 5 Normal Extension (C7) 4 Good Left Flexion (C6) 5 Normal Extension (C7) 4 Good Wrist Strength Wrist Manual Muscle Testing Right Flexion (C7) 4 Good Extension (C6) 5 Normal Left Flexion (C7) 5 Normal PT-OP-Q Treatments Start: 02/16/19 17:34 Freq: Status: Active Protocol: Document 03/18/19 16:07 HH (Rec: 03/18/19 16:47 [id number]) Cardio Equipment Elliptical Duration (Minutes) 11 Resistance 7 Therapeutic Exercises Supine Exercises T/S extension Side bilateral Equipment Used foam roller Reps/Minutes 12 x2 Prone Exercises prone C/S ext and push up plus Prone Exercise Name c/s retraction + push up plus Equipment Used level 1 band at the back of the head Reps/Minutes 5mins push up plus with rot Prone Exercise Name push up plus on table Side bilateral Reps/Minutes 15 x2 prayer stretch Prone Exercise Name foam arm on foam roller Side bilateral Equipment Used foam roller Reps/Minutes 5 sec hold x 8 Standing Exercises snow davin Standing Exercise Name with extended arms Equipment Used level 1 Reps/Minutes 5 x2 c/s rotation with chin tuck Side bilateral Equipment Used blue ball Reps/Minutes 12 x 2 Manual Therapy Treatment Soft Tissue Mobilization upper trap Mobilization Type Sustained Pressure,Trigger Point Release Intensity/Depth Moderate Body Position Sitting suboccipital Mobilization Type Sustained Pressure,Trigger Point Release Intensity/Depth Moderate Body Position Supine Comments in prone position as well Joint Mobilizations T/S Joint T1-T4 Direction PA mob Grade II Body Position Prone Reps/Duration 10 s x 2 Comments pt denies discomfort PT-OP-R Modalities Start: 02/16/19 17:34 Freq: Status: Active Protocol: Document 02/25/19 15:17 HH (Rec: 02/25/19 17:09 [id number]) Hot Pack/Cold Pack Treatment moist heat Location C/S and lumbar Patient Position Prone Treatment Duration (minutes) 8 Patient Tolerance Good PT-OP-T Assessment and Plan Start: 02/16/19 17:34 Freq: Status: Active Protocol: Document 03/18/19 16:07 HH (Rec: 03/18/19 16:47 [id number]) Physical Therapy Assessment Goals Self care Impairment Pt does not have HEP for self care Short Term Goal (STG) Pt will demonstrate safety and independence with short-term HEP STG Duration 4 weeks [facility] Goal (LTG) Pt will demonstrate safety and independence with maintenance HEP for long-term self management LTG Duration 8 weeks NDI Impairment Pt scored 24/50 (48% limited) on NDI Short Term Goal (STG) Pt will score <17/50 on NDI to reflect improved participation in functional activities STG Duration 4 weeks [facility] Goal (LTG) Pt will score <10/50 on NDI to reflect improved participation in functional activities LTG Duration 8 weeks Neck pain Impairment Pt reports 7/10 neck pain, 8/ 10 headache Short Term Goal (STG) Pt will report no more than 5/ 10 pain in neck or head with daily activities STG Duration 4 weeks [facility] Goal (LTG) Pt will report no more than 3/ 10 pain in neck or head with daily activities LTG Duration 8 weeks Sleep Impairment Pt has limited sleep and reports neck pain/headache wakes him up Short Term Goal (STG) Pt will sleep >4 hours without interruption d/t neck pain to improve fatigue and headaches STG Duration 4 weeks 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 Tx focused on deep cervical flexor and scap retractors strengthening. Pt marlyn tx very well without discomfort. Pt reports he is 70% better than IE. Physical Therapy Plan Next Visit Focus/Plan Next Note Type Treatment Note Next Visit Plan Review HEP and after tx tolerance. cont overall endrance and strength training. overall T/S mob and strengthening. discuss strategy to improve sleep health, nutrition, meditation cervical distraction AROM Cardio/general strengthening with elliptical, UBE, shuttle
--- NOTE | 2019-03-30 14:31 | PT-IP ANOTE ---
Called pt via phone since pt has been cancelling his appts. Pt states he has difficulty getting reimbursed for PT and hopefully he will solve that issue soon. He reports he has been doing better and able to have improved quality of sleep. Pt will schedule more appts once his insurance approves his PT visits.
--- NOTE | 2019-05-20 10:11 | PT.OPDS ---
Current Diagnoses Strain of muscle, fascia and tendon at neck level, initial encounter (03/18/19) Strain of muscle and tendon of back wall of thorax, initial encounter (03/18/19) Visit Care Team Role Provider Type CHARLENE Mccoy Primary Care Provider Non-Staff Specialty: Naturopathy Address: [address], [address] Email: Landen Anderson [place] Attending Provider Non-Staff Specialty: Chiropractic Address: [address] [place] [address], [id number] Email: Visit Number Visit Number 7 Discharge Summary PT-OP-B Current Condition Start: 02/16/19 17:34 Freq: Status: Active Protocol: Document 02/16/19 17:35 (Rec: 02/16/19 19:20 [id number]) Current Condition History of Current Condition Onset Date >10years ago Current Complaints Chronic neck pain and upper back pain, constant headache History of Current Condition Pt presents to clinic with primary c/o chronic neck pain and upper back pain, along with headache. He notes that his neck and upper back pain is not constant but tends to get aggravated after sleeping on it wrong, which then leads to his headache. Pt reports his pain started 10 years ago after he got as he stopped working out. He also notes his neck pain has been getting worse and feels like it is changing so it feels less like my neck is out of alignment and more like pressure between the joints in my neck. Pt states that he also has some tingling up his spine towards his neck when his pain is aggravated. Pt tends to feel better if he stretches his neck or places a towel placed underneath his neck in supine to relax. He has had chiropractic tx consistently over last 10 years but progress is not signficant so far. Looking to his R side, prolonged sitting and working in front of the computer tend to increase his neck pain. Pt also stated he can only sleep up to 4 hours a night over the past 10 years and constantly feels fatigued. 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 Prior Treatments and Tests 10 year hx of chiropractics Treatment Goals Patient/Caregiver Goals 1. Reduce frequency of headaches 2. Work through day without pain 3. Sleep more at night without pain PT-OP-T Assessment and Plan Start: 02/16/19 17:34 Freq: Status: Active Protocol: Document 05/20/19 10:11 (Rec: 05/20/19 10:11 [id number]) Physical Therapy Plan Discharge Physical Therapy Discharge Reasons Patient Request Discharge Comments Called pt in March and pt requested to be d/c due to limited insurance coverage.
== END 2019-05-20 13:33 ==
LOC: PHYS 16:00
PROVIDERS: PCP Registered Nurse; Visit Provider Chiropractor
DX: S16.1XXA Strain of muscle, fascia and tendon at neck level, initial encounter (principal); S29.012A Strain of muscle and tendon of back wall of thorax, initial encounter
CPT/HCPCS: 97010; 97110; 97140; 97162; 97535

== ENCOUNTER → 2019-03-20 07:59 | Outpatient (CLI) | payer OTHER, SELFPAY ==
[2019-03-20 08:45] LABS: Hematocrit 44.4 % (41-53); Hemoglobin 15.2 g/dL (13.5-17.5); Mean Corpuscular HGB Conc 34.3 % (30-36); Mean Corpuscular Hemoglobin 28.9 PG (26-34); Mean Corpuscular Volume 84.4 fL (80-100); Platelet Count 260 X10^3/uL (150-400); Red Blood Cell Count 5.27 X10^6/uL (4.5-5.9); Red Cell Distribution Width 13.8 % (11.6-14.8); White Blood Cell Count 7.9 X10^3/uL (4.5-11.0)
[2019-03-20 09:19] LABS: Alanine Aminotransferase 82 IU/L (<50); Albumin 4.4 g/dL (3.5-5.0); Albumin Globulin Ratio 1.8 (1.0-2.8); Alkaline Phosphatase 43 U/L (38-126); Aspartate Aminotransferase 40 IU/L (17-59); BUN Creatinine Ratio 11.7 (6-22); Bilirubin Total 0.6 mg/dL (0.2-1.3); Blood Urea Nitrogen 14 mg/dL (9-20); Calcium 9.2 mg/dL (8.4-10.2); Carbon Dioxide 27 mmol/L (22-32); Chloride 103 mmol/L (98-107); Cholesterol 193 mg/dL (140-199); Estimated Glomerular Filt Rate > 60.0 mL/min (>60); Globulin 2.4 g/dL (1.7-4.1); Glucose 88 mg/dL (70-100); HDL Cholesterol 40 mg/dL (40-60); HEMOLYSIS < 15 (0-50); LDL Cholesterol Calculated 129 mg/dL (<100); Potassium 4.2 mmol/L (3.4-5.1); Sodium 138 mmol/L (137-145); Total Protein 6.8 g/dL (6.3-8.2); Triglycerides 119 mg/dL (35-150)
== END ==
PROVIDERS: PCP Registered Nurse; Visit Provider Registered Nurse
DX: Z00.01 Encounter for general adult medical examination with abnormal findings (principal); L40.9 Psoriasis, unspecified
CPT/HCPCS: 36415; 80053; 80061; 85027

== ENCOUNTER → 2022-12-15 13:41 | Outpatient (CLI) | payer OTHER, SELFPAY ==
--- NOTE | 2022-12-15 | DI.MRI.S_ITS ---
PROCEDURE: MR CERVICAL SPINE WO CON INDICATIONS: Cervicalgia TECHNIQUE: Noncontrast sagittal T1 spin echo and T2 fast spin echo, sagittal STIR, foraminal oblique sagittal T2 fast spin echo, and axial gradient echo or T2 fast spin echo through the cervical spine. COMPARISON: None. FINDINGS: Image quality: Excellent. Alignment and Curvature: There is normal bony alignment. Bone Marrow: Marrow demonstrates normal overall signal. Spinal Cord: Visualized spinal cord has normal size and signal. No cerebellar tonsillar herniation. Paraspinous Soft Tissues: No paravertebral masses. Prevertebral soft tissues are normal in thickness. C2-C3: Normal appearance. C3-C4: Disc bulge. No central canal stenosis. Prominent right uncovertebral joint hypertrophy resulting in moderate to severe right foraminal narrowing and a degree of right foraminal C4 nerve root impingement. Left foramen is patent. C4-C5: Disc bulge. No canal stenosis. Mild bilateral uncovertebral joint hypertrophy. Moderate left foraminal narrowing with flattening deformity on the exiting left C5 nerve root. C5-C6: Minimal disc bulge. No canal stenosis. Bilateral uncovertebral joint hypertrophy. Moderate right foraminal narrowing with flattening deformity on the exiting right C6 nerve root. Moderate to severe left foraminal narrowing with a degree of left foraminal C6 nerve root impingement. C6-C7: Normal appearance. C7-T1: Normal appearance. IMPRESSION: 1. 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 2. No central canal stenosis. 3. Multilevel foraminal narrowing as described above. Findings include moderate to severe right foraminal narrowing at C3-C4, moderate left foraminal narrowing at C4-C5, and moderate right foraminal narrowing plus moderate to severe left foraminal narrowing at C5-C6. Dictated by: Norberto Gilliam M.D. on 12/16/2022 at 8:43 Approved by: Norberto Gilliam M.D. on 12/16/2022 at 8:48
== END ==
PROVIDERS: PCP Registered Nurse; Referring Provider Registered Nurse; Visit Provider Registered Nurse
DX: M47.812 Spondylosis without myelopathy or radiculopathy, cervical region (principal); M48.02 Spinal stenosis, cervical region; M54.2 Cervicalgia
CPT/HCPCS: 72141

== ENCOUNTER → 2022-12-21 08:01 | Outpatient (CLI) | payer OTHER, SELFPAY ==
[2022-12-21 08:47] LABS: Add Manual Diff / Slide Review NO; Basophils Absolute Auto 100 /uL (0-100); Eosinophils Absolute Auto 100 /uL (0-450); Eosinophils Percent Auto 1.5 % (2-4); Hematocrit 43.5 % (41-53); Hemoglobin 14.9 g/dL (13.5-17.5); Lymphocytes Absolute Auto 3400 /uL (1100-4500); Mean Corpuscular HGB Conc 34.3 % (30-36); Mean Corpuscular Hemoglobin 28.4 PG (26-34); Monocytes Absolute Auto 600 /uL (0-900); Monocytes Percent Auto 7.3 % (3-14); Neutrophils Absolute Auto 3500 /uL (1500-7000); Neutrophils Percent Auto 45.2 % (50-75); Platelet Count 278 X10^3/uL (150-400); Red Blood Cell Count 5.24 X10^6/uL (4.5-5.9); Red Cell Distribution Width 14.1 % (11.6-14.8); White Blood Cell Count 7.7 X10^3/uL (4.5-11.0)
[2022-12-21 09:01] LABS: Alanine Aminotransferase 33 IU/L (<50); Albumin 4.3 g/dL (3.5-5.0); Albumin Globulin Ratio 1.8 (1.0-2.8); Alkaline Phosphatase 42 U/L (38-126); Aspartate Aminotransferase 23 IU/L (17-59); BUN Creatinine Ratio 10.7 (6-22); Bilirubin Total 0.6 mg/dL (0.2-1.3); Blood Urea Nitrogen 13 mg/dL (9-20); C-Reactive Protein Quant < 0.5 mg/dL (<1.0); Calcium 9.8 mg/dL (8.4-10.2); Carbon Dioxide 28 mmol/L (22-32); Chloride 104 mmol/L (98-107); Cholesterol 170 mg/dL (140-199); Estimated Glomerular Filt Rate > 60 mL/min (>60); Globulin 2.4 g/dL (1.7-4.1); Glucose 91 mg/dL (70-100); HDL Cholesterol 39 mg/dL (40-60); HEMOLYSIS < 15 (0-50); LDL Cholesterol Calculated 100 mg/dL (<100); Potassium 4.5 mmol/L (3.4-5.1); Sodium 138 mmol/L (137-145); Total Protein 6.7 g/dL (6.3-8.2); Triglycerides 153 mg/dL (35-150)
[2022-12-21 09:05] LABS: Erythrocyte Sedimentation Rate 2 MM/HR (0-15)
== END ==
PROVIDERS: PCP Registered Nurse; Referring Provider Registered Nurse; Visit Provider Registered Nurse
DX: M54.2 Cervicalgia (principal); L40.0 Psoriasis vulgaris; Z13.1 Encounter for screening for diabetes mellitus; E78.1 Pure hyperglyceridemia
CPT/HCPCS: 36415; 80053; 80061; 85025; 85651; 86140

== ENCOUNTER → 2024-05-22 07:30 | Outpatient (CLI) | payer OTHER, SELFPAY ==
[2024-05-22 08:55] LABS: Add Manual Diff / Slide Review NO; Basophils Absolute Auto 0 /uL (0-100); Basophils Percent Auto 0.7 % (0-2); Eosinophils Absolute Auto 100 /uL (0-450); Eosinophils Percent Auto 1.2 % (2-4); Hematocrit 44.5 % (41-53); Hemoglobin 14.9 g/dL (13.5-17.5); Lymphocytes Absolute Auto 2500 /uL (1100-4500); Lymphocytes Percent Auto 37.4 % (25-40); Mean Corpuscular HGB Conc 33.4 % (30-36); Mean Corpuscular Hemoglobin 28.6 PG (26-34); Mean Corpuscular Volume 85.6 fL (80-100); Monocytes Absolute Auto 500 /uL (0-900); Monocytes Percent Auto 8.2 % (3-14); Neutrophils Absolute Auto 3500 /uL (1500-7000); Neutrophils Percent Auto 52.5 % (50-75); Platelet Count 290 X10^3/uL (150-400); Red Cell Distribution Width 13.6 % (11.6-14.8); White Blood Cell Count 6.6 X10^3/uL (4.5-11.0)
[2024-05-22 09:08] LABS: Hemoglobin A1C% w Est Avg Glu 5.1 % (4.0-6.0)
[2024-05-22 09:17] LABS: Alanine Aminotransferase 35 IU/L (<50); Albumin 4.4 g/dL (3.5-5.0); Albumin Globulin Ratio 1.9 (1.0-2.8); Alkaline Phosphatase 44 U/L (38-126); Aspartate Aminotransferase 28 IU/L (17-59); Bilirubin Total 0.6 mg/dL (0.2-1.3); Blood Urea Nitrogen 19 mg/dL (9-20); Calcium 9.4 mg/dL (8.4-10.2); Carbon Dioxide 29 mmol/L (22-32); Chloride 103 mmol/L (98-107); Cholesterol 171 mg/dL (140-199); Estimated Glomerular Filt Rate > 60 mL/min (>60); Globulin 2.3 g/dL (1.7-4.1); Glucose 89 mg/dL (70-100); HDL Cholesterol 36 mg/dL (40-60); HEMOLYSIS < 15 (0-50); LDL Cholesterol Calculated 112 mg/dL (<100); Potassium 4.6 mmol/L (3.4-5.1); Sodium 139 mmol/L (137-145); Total Protein 6.7 g/dL (6.3-8.2); Triglycerides 117 mg/dL (35-150)
[2024-05-22 09:43] LABS: Thyroid Stimulating Hormone 1.58 uIU/mL (0.47-4.68)
[2024-05-23 08:36] LABS: CRP, High Sensitivity 1.54 mg/L (0.00-3.00)
== END ==
PROVIDERS: PCP Registered Nurse; Referring Provider Registered Nurse; Visit Provider Registered Nurse
DX: Z00.01 Encounter for general adult medical examination with abnormal findings (principal); R05.9 Cough, unspecified; Z13.1 Encounter for screening for diabetes mellitus; Z13.220 Encounter for screening for lipoid disorders
CPT/HCPCS: 36415; 80053; 80061; 83036; 84443; 85025; 86140; 86635

== ENCOUNTER → 2024-08-12 16:28 | Outpatient (CLI) | payer OTHER, SELFPAY ==
--- NOTE | 2024-08-12 16:29 | DI.US.S_ITS ---
PROCEDURE: US RENAL COMPLETE INDICATIONS: ELEVATED SERUM CREATANINE TECHNIQUE: Real-time scanning was performed of the kidneys and bladder, with image documentation. COMPARISON: None. FINDINGS: Kidneys: Kidneys are normal in size. Right kidney measures 11.5 cm long; left kidney measures 11.2 cm long. Right renal cortical thickness is 1.1 cm; left renal cortical thickness is 1.2 cm. Renal cortical echotexture is normal. No hydronephrosis or nephrolithiasis. No suspicious solid mass lesions. Bladder: Pre-void bladder volume is 471 mL. Post-void residual is 12 mL. Pre-void images demonstrate no intraluminal masses or stones. On pre-void images, both ureteral jets are noted with color Doppler interrogation. (Of note, ureteral jets may not be detectable in up to 25% of cases due to insufficient differences in specific gravity between ureteral and bladder urine). Miscellaneous: No free pelvic fluid. The prostate measures 4.3 x 25.2 x 3.5 cm. There is an 11 mm cyst within the right prostate, which appears simple. IMPRESSION: Normal appearing kidneys, without hydronephrosis. Mild postvoid residual, 12 cc. 11 mm right prostate cyst incidentally noted. Dictated by: Ravinder Owen M.D. on 08/12/2024 at 17:20 Approved by: Ravinder Owen M.D. on 08/12/2024 at 17:21
== END ==
PROVIDERS: PCP Registered Nurse; Referring Provider Registered Nurse; Visit Provider Registered Nurse
DX: R79.89 Other specified abnormal findings of blood chemistry (principal); R33.9 Retention of urine, unspecified; N42.83 Cyst of prostate
CPT/HCPCS: 76770

== ENCOUNTER → 2025-03-09 16:29 | Outpatient (CLI) | payer OTHER, SELFPAY ==
--- NOTE | 2025-03-09 16:30 | DI.US.S_ITS ---
PROCEDURE: US RENAL COMPLETE INDICATIONS: 43 y/o M w/ elevated sCr and a prostate cyst TECHNIQUE: Real-time scanning was performed of the kidneys and bladder, with image documentation. COMPARISON: [facility], , RENAL COMPLETE, 08/12/2024, 16:38. FINDINGS: Kidneys: Kidneys are normal in size. Right kidney measures 11.9 cm long; left kidney measures 11.5 cm long. Right renal cortical thickness is 1.4 cm; left renal cortical thickness is 1.7 cm. Renal cortical echotexture is normal. No hydronephrosis or nephrolithiasis. No suspicious solid mass lesions. Bladder: Pre-void bladder volume is 328 mL. Post-void residual is 0 mL. Pre- void images demonstrate no intraluminal masses or stones. On pre-void images, neither ureteral jets are noted with color Doppler interrogation. (Of note, ureteral jets may not be detectable in up to 25% of cases due to insufficient differences in specific gravity between ureteral and bladder urine). Miscellaneous: No free pelvic fluid. Prostate appears bulky, with a right- sided cystic region measuring 1.4 x 0.9 x 1.1 cm as has been previously the case. IMPRESSION: Normal appearing kidneys. Normal bladder function. Right-side prostate cyst as was previously the case 08/12/24. Mild generalized prosthetic enlargement. Dictated by: Moe Kirby M.D. on 03/10/2025 at 10:08 Approved by: Moe Kirby M.D. on 03/10/2025 at 10:12
== END ==
PROVIDERS: PCP Registered Nurse; Referring Provider Urology; Visit Provider Urology
DX: R79.89 Other specified abnormal findings of blood chemistry (principal); N40.0 Benign prostatic hyperplasia without lower urinary tract symptoms; N42.83 Cyst of prostate
CPT/HCPCS: 76770